=== PATIENT | male | born 1995 | race African-American/Black ===

== ENCOUNTER 2024-04-13 10:16 | Emergency (ER) | payer OTHER ==
[~2024-04-13] VITALS: Ht 177.8 cm; Wt 63.5 kg
[2024-04-13 10:24] VITALS: BP 128/71; TEMP 98.2; O2SAT 99
== END 2024-04-13 10:43 | disposition home or self-care (01) ==
LOC: ER 10:16
DX: F90.9 Attention-deficit hyperactivity disorder, unspecified type (principal); F10.10 Alcohol abuse, uncomplicated; F19.10 Other psychoactive substance abuse, uncomplicated; F17.200 Nicotine dependence, unspecified, uncomplicated; Y90.9 Presence of alcohol in blood, level not specified